=== PATIENT | male | born 1955 | race Caucasian/White ===

== ENCOUNTER 2019-03-05 14:36 | Inpatient (IN) | payer MEDICARE, OTHER ==
[~2019-03-05] VITALS: Ht 170.2 cm; Wt 61.4 kg
[2019-03-05 15:26] LABS: BASOPHILS # (AUTO) 0.1 X10'3 (0-0.2); BASOPHILS % (AUTO) 0.7 % (0-1); EOSINOPHILS # (AUTO) 0.1 X10'3 (0-0.9); HEMATOCRIT 47.8 % (42.0-52.0); HEMOGLOBIN 15.9 g/dl (14.0-17.9); LYMPHOCYTES # (AUTO) 1.1 X10'3 (1.1-4.8); LYMPHOCYTES % (AUTO) 9.5 % (21-51); MEAN CORPUSCULAR HEMOGLOBIN 30.8 PG (27.0-31.0); MEAN CORPUSCULAR HGB CONC 33.2 g/dL (33.0-36.5); MEAN CORPUSCULAR VOLUME 92.7 FL (78-98); MEAN PLATELET VOLUME 8.7 FL (7.4-10.4); MONOCYTES # (AUTO) 0.9 X10'3 (0-0.9); MONOCYTES % (AUTO) 7.9 % (2-12); NEUTROPHILS % (AUTO) 80.9 % (42-75); PLATELET COUNT 222 X10'3 (140-440); RED BLOOD COUNT 5.16 X10'6 (4.70-6.10); RED CELL DISTRIBUTION WIDTH 13.5 % (11.5-14.5); WHITE BLOOD COUNT 11.1 X10'3 (4.5-11.0)
[2019-03-05] MEDS ORDERED: NO HOME MEDS (15:44)
[2019-03-05] MEDS ORDERED: LORazepam 1 MG tablet PO ONE (16:05)
[2019-03-05 16:13] LABS: PARTIAL THROMBOPLASTIN TIME 29 SECONDS (22-32)
[2019-03-05 16:18] LABS: ALANINE AMINOTRANSFERASE 33 U/L (12-78); ALBUMIN 3.6 G/DL (3.4-5.0); ALBUMIN/GLOBULIN RATIO 1.1 (1.1-1.5); ALKALINE PHOSPHATASE 107 IU/L (46-116); ANION GAP 4 (8-16); ASPARTATE AMINO TRANSFERASE 28 U/L (10-37); BILIRUBIN,TOTAL 0.6 MG/DL (0.1-1.0); BLOOD UREA NITROGEN 13 MG/DL (7-18); BUN/CREATININE RATIO 10.6 (5.4-32.0); CHLORIDE 102 MMOL/L (99-107); CREATININE 1.23 MG/DL (0.60-1.10); GLUCOSE 110 MG/DL (70-104); POTASSIUM 4.4 MMOL/L (3.5-5.1); SODIUM 142 MMOL/L (135-145); TOTAL CARBON DIOXIDE 35.7 MMOL/L (24-32); eGFR 59 ML/MIN
[2019-03-05] MEDS ORDERED: ipratropium/albuterol 3ml nebule NEB ONE (16:20)
[2019-03-05] MEDS ORDERED: methylPREDNISolone sod succ 125mg/2ml vial IV ONE (16:35)
[2019-03-05 17:16] LABS: ABG HCO3 30.2 mmol/L (22.0-26.0); ABG OXYGEN SATURATION 97.2 % (95-98); ABG PH (T) 7.391 (7.350-7.450); ABG PO2 (T) 88.3 mmHg (83-108); FCOHb 0.8 % (0.5-1.5); FLOW 2 L/min; FMetHb 0.2 % (0.3-1.12); FO2Hb 96.2 % (94-100); TOTAL HEMOGLOBIN 16.6 G/dl (14.0-17.9)
[2019-03-05] MEDS ORDERED: furosemide 10 MG/1 ML 10ml inj IV ONE (17:25)
[2019-03-05] MEDS ORDERED: magnesium 4gm in 100ml NS 100 ML IV PRN (17:30)
[2019-03-05] MEDS ORDERED: ondansetron/PF 4mg/2ml inj IV PRN (17:30)
[2019-03-05] MEDS ORDERED: ipratropium/albuterol 3ml nebule NEB PRN (17:30)
[2019-03-05] MEDS ORDERED: mag hydrox/Alum hydrox/simeth 30ml oral suspension PO PRN (17:30)
[2019-03-05] MEDS ORDERED: magnesium 2GM in 50ml NS 50 ML IV PRN (17:30)
[2019-03-05] MEDS ORDERED: HYDROcodone/acetaminophen 5mg/325mg tablet PO PRN (17:30)
[2019-03-05] MEDS ORDERED: magnesium Cl slow-release 64mg tablet PO PRN (17:30)
[2019-03-05] MEDS ORDERED: magnesium hydroxide 30ml (MOM) UD suspension PO PRN (17:30)
[2019-03-05] MEDS ORDERED: metoclopramide 5 mg/ml inj IV PRN (17:30)
[2019-03-05] MEDS ORDERED: diphenhydrAMINE 50 mg/ml inj IV PRN (17:30)
[2019-03-05] MEDS ORDERED: acetaminophen 650mg rectal suppository RC PRN (17:30)
[2019-03-05] MEDS ORDERED: potassium CL 10mEq/100ml bag 100 ML IV PRN ×2 (17:30)
[2019-03-05] MEDS ORDERED: acetaminophen 325mg tablet PO PRN ×2 (17:30)
[2019-03-05] MEDS ORDERED: potassium Cl 20 mEq SR tablet PO PRN ×2 (17:30)
[2019-03-05] MEDS ORDERED: diphenhydrAMINE 25mg capsule PO PRN (17:30)
[2019-03-05] MEDS ORDERED: bisacodyl 10mg suppository rectal RC PRN (17:30)
--- NOTE | 2019-03-05 18:06 | NUR ---
Dr. Sevilla is at the bedside to complete admission orders and assessment. Pt's admission to the hospital is pending.
[2019-03-05] MEDS ORDERED: LORazepam 1 MG tablet PO PRN (18:35)
[2019-03-05] MEDS ORDERED: iohexol 300mg/ml 100ml inj. ONE (18:45)
--- NOTE | 2019-03-05 18:51 | NUR ---
Blood cultures collected. Pt is being transported to CT scan via gurney with the side rails raised. Rocephin IV antibiotic to be started upon return from CT scan.
[2019-03-05 19:10] LABS: PHOSPHORUS 2.5 MG/DL (2.3-4.5)
[2019-03-05] MEDS: CefTRIAXone/D5W-Rocephin 1gm 50 ML IV SCH (19:15)
[2019-03-05] MEDS: lisinopril 10 MG tablet PO SCH (19:19)
[2019-03-05 20:00] VITALS: BP 144/100
[2019-03-05] MEDS: K and/or MAG REPLACEMENT MC SCH (20:00)
--- NOTE | 2019-03-05 20:00 | NUR ---
Patient in room PCU 3025. I have received report from [employer] user [id number] and had the opportunity to ask questions and assume patient care. Patient was shortly on the unit with all belongings at bedside.
[2019-03-05] MEDS: ipratropium/albuterol 3ml nebule NEB SCH ×2 (20:04→23:47)
[2019-03-05] MEDS ORDERED: temazepam 15mg capsule PO PRN (21:00)
[2019-03-05] MEDS: furosemide 40mg/4ml inj IV SCH (21:47)
[2019-03-05] MEDS: methylPREDNISolone sod succ 125mg/2ml vial IV SCH (21:47)
[2019-03-05] MEDS: docusate sod 100mg capsule PO SCH (21:48)
[2019-03-05] MEDS: carVEDilol 3.125mg tablet PO SCH (21:48)
[2019-03-05 22:00] VITALS: BP 116/79
[2019-03-06] MEDS: methylPREDNISolone sod succ 125mg/2ml vial IV SCH ×2 (01:31→09:00)
[2019-03-06 02:00] VITALS: BP 114/78
[2019-03-06 03:27] LABS: LYMPHOCYTES # (AUTO) 0.3 X10'3 (1.1-4.8); MEAN PLATELET VOLUME 8.7 FL (7.4-10.4); MONOCYTES # (AUTO) 0.1 X10'3 (0-0.9); PLATELET COUNT 218 X10'3 (140-440)
[2019-03-06 03:29] LABS: BASOPHILS % (AUTO) 0.1 % (0-1); EOSINOPHILS % (AUTO) 0.1 % (0-6); HEMATOCRIT 49.3 % (42.0-52.0); HEMOGLOBIN 16.8 g/dl (14.0-17.9); LYMPHOCYTES % (AUTO) 6.8 % (21-51); MEAN CORPUSCULAR HEMOGLOBIN 31.1 PG (27.0-31.0); MEAN CORPUSCULAR VOLUME 91.5 FL (78-98); MONOCYTES % (AUTO) 1.9 % (2-12); NEUTROPHILS # (AUTO) 4.5 X10'3 (1.8-7.7); NEUTROPHILS % (AUTO) 91.1 % (42-75); RED BLOOD COUNT 5.39 X10'6 (4.70-6.10); RED CELL DISTRIBUTION WIDTH 13.1 % (11.5-14.5)
[2019-03-06 03:46] LABS: ALANINE AMINOTRANSFERASE 30 U/L (12-78); ALBUMIN 3.5 G/DL (3.4-5.0); ALKALINE PHOSPHATASE 103 IU/L (46-116); ANION GAP 5 (8-16); ASPARTATE AMINO TRANSFERASE 22 U/L (10-37); BILIRUBIN,TOTAL 0.6 MG/DL (0.1-1.0); BLOOD UREA NITROGEN 20 MG/DL (7-18); BUN/CREATININE RATIO 13.5 (5.4-32.0); CHLORIDE 99 MMOL/L (99-107); CREATININE 1.48 MG/DL (0.60-1.10); GLUCOSE 135 MG/DL (70-104); POTASSIUM 3.8 MMOL/L (3.5-5.1); SODIUM 140 MMOL/L (135-145); TOTAL CARBON DIOXIDE 35.7 MMOL/L (24-32); eGFR 48 ML/MIN
[2019-03-06 03:50] LABS: CHOL/HDL RATIO 3.2 (0.00-4.99); CHOLESTEROL 193 MG/DL (0-200); HDL CHOLESTEROL 61 MG/DL (35-60); LDL CHOLESTEROL 123 MG/DL (50-100); MAGNESIUM 1.7 MG/DL (1.5-2.4); PHOSPHORUS 3.4 MG/DL (2.3-4.5); TRIGLYCERIDES 48 MG/DL (20-135)
--- NOTE | 2019-03-06 06:00 | NUR ---
END NOC NOTE Patient slept tonight. On admission patient's blood pressure was high and stated he had "white coat syndrome and haven't been in the hospital in a very long time." Blood pressure did resolve itself. All medications were given. Will continue to monitor.
--- NOTE | 2019-03-06 06:20 | NUR ---
Problems reprioritized. Patient report given, questions answered & plan of care reviewed with DESIREE Stokes.
--- NOTE | 2019-03-06 06:40 | NUR ---
Patient in room PCU 3025. I have received report from DESIREE Stokes and had the opportunity to ask questions and assume patient care. Patient sleeping at this time. No distress noted. Will continue to monitor.
[2019-03-06 07:00] VITALS: BP 130/93
[2019-03-06] MEDS: ipratropium/albuterol 3ml nebule NEB SCH ×5 (07:17→23:44)
[2019-03-06] MEDS: K and/or MAG REPLACEMENT MC SCH ×2 (08:00→20:00)
--- NOTE | 2019-03-06 08:20 | NUR ---
Problems reprioritized. Patient report given, questions answered & plan of care reviewed with Natalee RAMÍREZ.
[2019-03-06] MEDS: furosemide 40mg/4ml inj IV SCH ×2 (09:00→20:08)
[2019-03-06] MEDS: docusate sod 100mg capsule PO SCH ×2 (09:00→20:09)
[2019-03-06] MEDS: lisinopril 10 MG tablet PO SCH (09:00)
[2019-03-06] MEDS: sertraline 50mg tablet PO SCH (09:00)
[2019-03-06] MEDS: enoxaparin 40mg/0.4ml syringe SQ SCH (09:01)
[2019-03-06] MEDS: CefTRIAXone/D5W-Rocephin 1gm 50 ML IV SCH (09:01)
[2019-03-06] MEDS: carVEDilol 3.125mg tablet PO SCH ×2 (09:02→20:08)
[2019-03-06] MEDS ORDERED: pneumococcal 23-VAL P-sac vacc 25 mcg/0.5ml vial IMVAC ONE (10:00)
[2019-03-06] MEDS ORDERED: FLU VACC QS2019-20 36MOS UP/PF 60 MCG/0.5 ML SYRINGE IMVAC ONE (10:00)
[2019-03-06 11:00] VITALS: BP 111/79
[2019-03-06 15:00] VITALS: BP 110/77
--- NOTE | 2019-03-06 18:00 | NUR ---
Patient in room PCU 3025. I have received report from Natalee RAMÍREZ and had the opportunity to ask questions and assume patient care.
[2019-03-06 19:00] VITALS: BP 103/64
[2019-03-06 23:00] VITALS: BP 113/71
[2019-03-07 03:00] VITALS: BP 117/75
--- NOTE | 2019-03-07 04:45 | NUR ---
END NOC NOTE Patient slept well tonight. IS and flutter valve is at bedside, needs more teaching. Will continue to monitor.
[2019-03-07 05:05] LABS: BASOPHILS % (AUTO) 0.1 % (0-1); EOSINOPHILS % (AUTO) 0 % (0-6); HEMATOCRIT 48.1 % (42.0-52.0); HEMOGLOBIN 16.3 g/dl (14.0-17.9); LYMPHOCYTES # (AUTO) 1.1 X10'3 (1.1-4.8); LYMPHOCYTES % (AUTO) 5.2 % (21-51); MEAN CORPUSCULAR HEMOGLOBIN 30.8 PG (27.0-31.0); MEAN CORPUSCULAR HGB CONC 33.8 g/dL (33.0-36.5); MEAN CORPUSCULAR VOLUME 91.1 FL (78-98); MEAN PLATELET VOLUME 9.1 FL (7.4-10.4); MONOCYTES # (AUTO) 1.8 X10'3 (0-0.9); MONOCYTES % (AUTO) 8.2 % (2-12); NEUTROPHILS # (AUTO) 18.8 X10'3 (1.8-7.7); NEUTROPHILS % (AUTO) 86.5 % (42-75); PLATELET COUNT 248 X10'3 (140-440); RED BLOOD COUNT 5.28 X10'6 (4.70-6.10); RED CELL DISTRIBUTION WIDTH 13.5 % (11.5-14.5); WHITE BLOOD COUNT 21.7 X10'3 (4.5-11.0)
[2019-03-07 05:17] LABS: ALANINE AMINOTRANSFERASE 30 U/L (12-78); ALBUMIN 3.3 G/DL (3.4-5.0); ALKALINE PHOSPHATASE 95 IU/L (46-116); ANION GAP 2 (8-16); ASPARTATE AMINO TRANSFERASE 18 U/L (10-37); BILIRUBIN,TOTAL 0.4 MG/DL (0.1-1.0); BLOOD UREA NITROGEN 40 MG/DL (7-18); BUN/CREATININE RATIO 19.2 (5.4-32.0); CALCIUM 9.1 MG/DL (8.5-10.1); CHLORIDE 99 MMOL/L (99-107); CREATININE 2.08 MG/DL (0.60-1.10); GLUCOSE 120 MG/DL (70-104); MAGNESIUM 1.9 MG/DL (1.5-2.4); PHOSPHORUS 4.8 MG/DL (2.3-4.5); POTASSIUM 3.7 MMOL/L (3.5-5.1); SODIUM 140 MMOL/L (135-145); TOTAL CARBON DIOXIDE 39.1 MMOL/L (24-32); TOTAL PROTEIN 6.5 G/DL (6.4-8.2); eGFR 32 ML/MIN
--- NOTE | 2019-03-07 06:46 | NUR ---
Problems reprioritized. Patient report given, questions answered & plan of care reviewed with Natalee coto.
[2019-03-07 07:00] VITALS: BP 104/77
[2019-03-07] MEDS: ipratropium/albuterol 3ml nebule NEB SCH ×5 (07:00→23:00)
[2019-03-07] MEDS: K and/or MAG REPLACEMENT MC SCH ×2 (08:00→20:00)
[2019-03-07] MEDS: carVEDilol 3.125mg tablet PO SCH ×2 (08:40→20:33)
[2019-03-07] MEDS: aspirin 81mg tablet.DR PO SCH (08:40)
[2019-03-07] MEDS: atorvastatin 20mg tablet PO SCH (08:40)
[2019-03-07] MEDS: furosemide 40mg/4ml inj IV SCH (08:40)
[2019-03-07] MEDS: sertraline 50mg tablet PO SCH (08:41)
[2019-03-07] MEDS: docusate sod 100mg capsule PO SCH ×2 (08:41→20:33)
[2019-03-07] MEDS: lisinopril 10 MG tablet PO SCH (08:41)
[2019-03-07] MEDS: CefTRIAXone/D5W-Rocephin 1gm 50 ML IV SCH (08:42)
[2019-03-07] MEDS: enoxaparin 40mg/0.4ml syringe SQ SCH (08:42)
[2019-03-07 11:00] VITALS: BP 112/84
[2019-03-07 15:00] VITALS: BP 127/83
[2019-03-07] MEDS: predniSONE 20 mg tablet PO SCH (17:24)
--- NOTE | 2019-03-07 18:00 | NUR ---
Patient in room PCU 3025. I have received report from Natalee RAMÍREZ and had the opportunity to ask questions and assume patient care.
[2019-03-07 19:00] VITALS: BP 121/81
[2019-03-07] MEDS: lactobacillus rhamnosus 10,000 MMU CELLS/CAPSULE PO SCH (20:33)
[2019-03-07 23:00] VITALS: BP 129/97
[2019-03-08 03:00] VITALS: BP 118/85
[2019-03-08 05:50] LABS: BASOPHILS % (AUTO) 0.1 % (0-1); EOSINOPHILS % (AUTO) 0 % (0-6); HEMATOCRIT 52.3 % (42.0-52.0); HEMOGLOBIN 17.3 g/dl (14.0-17.9); LYMPHOCYTES # (AUTO) 0.5 X10'3 (1.1-4.8); LYMPHOCYTES % (AUTO) 3.4 % (21-51); MEAN CORPUSCULAR HEMOGLOBIN 30.6 PG (27.0-31.0); MEAN CORPUSCULAR VOLUME 92.8 FL (78-98); MEAN PLATELET VOLUME 9.2 FL (7.4-10.4); MONOCYTES # (AUTO) 0.5 X10'3 (0-0.9); MONOCYTES % (AUTO) 3.8 % (2-12); NEUTROPHILS # (AUTO) 13.2 X10'3 (1.8-7.7); NEUTROPHILS % (AUTO) 92.7 % (42-75); PLATELET COUNT 258 X10'3 (140-440); RED BLOOD COUNT 5.64 X10'6 (4.70-6.10); RED CELL DISTRIBUTION WIDTH 13.6 % (11.5-14.5); WHITE BLOOD COUNT 14.3 X10'3 (4.5-11.0)
--- NOTE | 2019-03-08 05:52 | NUR ---
End noc note Patient has flutter and IS at bedside, teaching was done, return demonstrating went well. Slept very well tonight, would like to go home. Will continue to monitor.
[2019-03-08 05:58] LABS: ALANINE AMINOTRANSFERASE 29 U/L (12-78); ALBUMIN 3.3 G/DL (3.4-5.0); ALKALINE PHOSPHATASE 97 IU/L (46-116); ANION GAP 4 (8-16); ASPARTATE AMINO TRANSFERASE 15 U/L (10-37); BILIRUBIN,TOTAL 0.6 MG/DL (0.1-1.0); BLOOD UREA NITROGEN 38 MG/DL (7-18); BUN/CREATININE RATIO 26.4 (5.4-32.0); CALCIUM 8.9 MG/DL (8.5-10.1); CHLORIDE 100 MMOL/L (99-107); CREATININE 1.44 MG/DL (0.60-1.10); GLUCOSE 135 MG/DL (70-104); MAGNESIUM 2.1 MG/DL (1.5-2.4); PHOSPHORUS 4.7 MG/DL (2.3-4.5); POTASSIUM 4.2 MMOL/L (3.5-5.1); SODIUM 140 MMOL/L (135-145); TOTAL CARBON DIOXIDE 36.4 MMOL/L (24-32); TOTAL PROTEIN 6.7 G/DL (6.4-8.2); eGFR 49 ML/MIN
--- NOTE | 2019-03-08 06:19 | NUR ---
Problems reprioritized. Patient report given, questions answered & plan of care reviewed with Natalee RAMÍREZ.
[2019-03-08 07:00] VITALS: BP 137/97
[2019-03-08] MEDS: K and/or MAG REPLACEMENT MC SCH (08:00)
[2019-03-08] MEDS: ipratropium/albuterol 3ml nebule NEB SCH ×2 (08:12→11:12)
[2019-03-08] MEDS: atorvastatin 20mg tablet PO SCH (08:52)
[2019-03-08] MEDS: lactobacillus rhamnosus 10,000 MMU CELLS/CAPSULE PO SCH (08:52)
[2019-03-08] MEDS: CefTRIAXone/D5W-Rocephin 1gm 50 ML IV SCH (08:52)
[2019-03-08] MEDS: docusate sod 100mg capsule PO SCH (08:52)
[2019-03-08] MEDS: carVEDilol 3.125mg tablet PO SCH (08:52)
[2019-03-08] MEDS: predniSONE 20 mg tablet PO SCH (08:52)
[2019-03-08] MEDS: sertraline 50mg tablet PO SCH (08:52)
[2019-03-08] MEDS: aspirin 81mg tablet.DR PO SCH (08:52)
[2019-03-08] MEDS: enoxaparin 40mg/0.4ml syringe SQ SCH (08:53)
[2019-03-08] MEDS ORDERED: CEFU500T66 PO (11:52)
[2019-03-08] MEDS ORDERED: ASPI-1071 PO (11:52)
[2019-03-08] MEDS ORDERED: SERT50TA10 PO (11:52)
[2019-03-08] MEDS ORDERED: IPRA3AMP9 NEB (11:52)
[2019-03-08] MEDS ORDERED: COR3.125T PO (11:52)
[2019-03-08] MEDS ORDERED: PRED20TA PO (11:52)
[2019-03-08] MEDS ORDERED: ATOR20TA66 PO (11:52)
--- NOTE | 2019-03-08 12:12 | NUR ---
Patient stable for discharge per MD. Educations materials provided to patient and patients mother. Discharge instructions given to patient. All new medications sent to [facility]. PIV d/c'd, catheter intact. Tele monitor removed and returned to telecom manager. Patient transported off unit via wheel chair accompanied by staff.
== END 2019-03-08 12:38 | disposition home or self-care (01) | DRG 291 ==
LOC: ER 14:38 → ED HOLD 17:45 → PCU 3S 19:59
PROVIDERS: ADMIT Family Medicine; ATTEND Family Medicine
PROC: BW241ZZ Computerized Tomography (CT Scan) of Chest and Abdomen using Low Osmolar Contrast (ICD-10-PCS; 2019-03-05)
PROC: 3E0234Z Introduction of Serum, Toxoid and Vaccine into Muscle, Percutaneous Approach (ICD-10-PCS; principal; 2019-03-06)
PROC: 3E02340 Introduction of Influenza Vaccine into Muscle, Percutaneous Approach (ICD-10-PCS; 2019-03-06)
DX: I11.0 Hypertensive heart disease with heart failure (principal); J96.21 Acute and chronic respiratory failure with hypoxia; N17.0 Acute kidney failure with tubular necrosis; I50.33 Acute on chronic diastolic (congestive) heart failure; F32.9 Major depressive disorder, single episode, unspecified; F41.1 Generalized anxiety disorder; R00.0 Tachycardia, unspecified; E86.0 Dehydration; D72.823 Leukemoid reaction; J43.9 Emphysema, unspecified; Z77.098 Contact with and (suspected) exposure to other hazardous, chiefly nonmedicinal, chemicals; Z79.82 Long term (current) use of aspirin; Z23 Encounter for immunization; Z79.899 Other long term (current) drug therapy; Z87.891 Personal history of nicotine dependence; Z99.81 Dependence on supplemental oxygen; T38.0X5A Adverse effect of glucocorticoids and synthetic analogues, initial encounter; Y92.238 Other place in hospital as the place of occurrence of the external cause
CPT/HCPCS: 36415; 36600; 71045; 71260; 80053; 80061; 82803; 83605; 83735; 83880; 84100; 84145; 84484; 85018; 85025; 85379; 85610; 85730; 87040; 87081; 93005; 93308; 94640; 94667; 94668; 94760; 96374; 97116; 97161; 97530; 99285; G0378; J0696; J1650; J1940; J2930; J7512; Q2037; Q9967

== ENCOUNTER 2019-05-31 05:34 | Emergency (ER) | payer MEDICARE, OTHER ==
[~2019-05-31] VITALS: Ht 170.2 cm; Wt 59.1 kg
[~2019-05-31 05:34] MED LIST: ALBU8.5H8 INH; ATOR40TA72 PO; BUDE10.22 INH; CARV-49 PO; IPRA3AMP9 NEB; PANT40TA4 PO
[2019-05-31] MEDS ORDERED: methylPREDNISolone sod succ 125mg/2ml vial IV ONE (06:05)
[2019-05-31] MEDS ORDERED: ipratropium/albuterol 3ml nebule NEB ONE (06:05)
[2019-05-31 06:11] LABS: BASOPHILS # (AUTO) 0.1 X10'3 (0-0.2); BASOPHILS % (AUTO) 1.3 % (0-1); EOSINOPHILS # (AUTO) 0.5 X10'3 (0-0.9); EOSINOPHILS % (AUTO) 4.8 % (0-6); HEMATOCRIT 49.8 % (42.0-52.0); HEMOGLOBIN 16.4 g/dl (14.0-17.9); LYMPHOCYTES # (AUTO) 2.7 X10'3 (1.1-4.8); LYMPHOCYTES % (AUTO) 24.6 % (21-51); MEAN CORPUSCULAR HEMOGLOBIN 30.4 PG (27.0-31.0); MEAN CORPUSCULAR HGB CONC 32.9 g/dL (33.0-36.5); MEAN CORPUSCULAR VOLUME 92.3 FL (78-98); MEAN PLATELET VOLUME 8.9 FL (7.4-10.4); MONOCYTES # (AUTO) 1.1 X10'3 (0-0.9); NEUTROPHILS # (AUTO) 6.4 X10'3 (1.8-7.7); NEUTROPHILS % (AUTO) 59.3 % (42-75); PLATELET COUNT 201 X10'3 (140-440); RED BLOOD COUNT 5.39 X10'6 (4.70-6.10); RED CELL DISTRIBUTION WIDTH 14.9 % (11.5-14.5); WHITE BLOOD COUNT 10.9 X10'3 (4.5-11.0)
[2019-05-31 06:24] LABS: ALANINE AMINOTRANSFERASE 33 U/L (12-78); ALBUMIN 3.7 G/DL (3.4-5.0); ALBUMIN/GLOBULIN RATIO 0.9 (1.1-1.5); ALKALINE PHOSPHATASE 125 IU/L (46-116); ANION GAP 2 (8-16); ASPARTATE AMINO TRANSFERASE 37 U/L (10-37); BILIRUBIN,TOTAL 0.5 MG/DL (0.1-1.0); BLOOD UREA NITROGEN 13 MG/DL (7-18); BUN/CREATININE RATIO 9.4 (5.4-32.0); CALCIUM 9.2 MG/DL (8.5-10.1); CHLORIDE 104 MMOL/L (99-107); CREATININE 1.38 MG/DL (0.60-1.10); GLUCOSE 167 MG/DL (70-104); SODIUM 140 MMOL/L (135-145); TOTAL PROTEIN 7.6 G/DL (6.4-8.2); eGFR 52 ML/MIN
--- NOTE | 2019-05-31 06:32 | NUR ---
RT at bedside
[2019-05-31] MEDS ORDERED: LORazepam 2 mg/ml vial IV ONE (06:45)
[2019-05-31] MEDS ORDERED: albuterol 2.5 MG/3 ML nebule CONTNEB PRN (06:45)
[2019-05-31] MEDS ORDERED: albuterol 2.5 MG/3 ML nebule ONE (06:49)
[2019-05-31] MEDS ORDERED: furosemide 10 MG/1 ML 10ml inj IV ONE (07:45)
[2019-05-31] MEDS ORDERED: furosemide 40mg/4ml inj IV ONE (07:45)
[2019-05-31 09:20] VITALS: BP 133/87
[2019-05-31] MEDS ORDERED: PRED20TA PO (09:49)
== END 2019-05-31 11:06 | disposition home or self-care (01) ==
LOC: ER 05:35
DX: J44.1 Chronic obstructive pulmonary disease with (acute) exacerbation (principal); R06.02 Shortness of breath; R05 Cough; Z95.1 Presence of aortocoronary bypass graft; Z87.891 Personal history of nicotine dependence; Z79.899 Other long term (current) drug therapy
CPT/HCPCS: 36415; 71045; 80053; 83880; 84484; 85025; 93005; 94640; 96374; 96375; 99285; J1940; J2060; J2930; 94760

== ENCOUNTER 2019-08-16 07:56 | Emergency (ER) | payer MEDICARE, OTHER ==
[~2019-08-16] VITALS: Ht 170.2 cm; Wt 61.4 kg
[2019-08-16 08:27] LABS: BASOPHILS # (AUTO) 0.1 X10'3 (0-0.2); EOSINOPHILS # (AUTO) 0.3 X10'3 (0-0.9); EOSINOPHILS % (AUTO) 3.4 % (0-6); HEMATOCRIT 47.6 % (42.0-52.0); HEMOGLOBIN 15.5 g/dl (14.0-17.9); LYMPHOCYTES # (AUTO) 1.4 X10'3 (1.1-4.8); LYMPHOCYTES % (AUTO) 13.1 % (21-51); MEAN CORPUSCULAR HEMOGLOBIN 30.1 PG (27.0-31.0); MEAN CORPUSCULAR HGB CONC 32.7 g/dL (33.0-36.5); MEAN CORPUSCULAR VOLUME 92.2 FL (78-98); MEAN PLATELET VOLUME 9.3 FL (7.4-10.4); MONOCYTES # (AUTO) 0.9 X10'3 (0-0.9); MONOCYTES % (AUTO) 8.7 % (2-12); NEUTROPHILS # (AUTO) 7.6 X10'3 (1.8-7.7); NEUTROPHILS % (AUTO) 73.8 % (42-75); PLATELET COUNT 158 X10'3 (140-440); RED BLOOD COUNT 5.16 X10'6 (4.70-6.10); RED CELL DISTRIBUTION WIDTH 13.8 % (11.5-14.5); WHITE BLOOD COUNT 10.3 X10'3 (4.5-11.0)
[2019-08-16] MEDS ORDERED: methylPREDNISolone sod succ 125mg/2ml vial IV ONE (08:40)
[2019-08-16 08:44] LABS: ALANINE AMINOTRANSFERASE 33 U/L (12-78); ALBUMIN 3.2 G/DL (3.4-5.0); ALKALINE PHOSPHATASE 114 IU/L (46-116); ANION GAP 2 (8-16); ASPARTATE AMINO TRANSFERASE 34 U/L (10-37); BILIRUBIN,TOTAL 0.5 MG/DL (0.1-1.0); BLOOD UREA NITROGEN 19 MG/DL (7-18); BUN/CREATININE RATIO 13.4 (5.4-32.0); CALCIUM 8.6 MG/DL (8.5-10.1); CHLORIDE 109 MMOL/L (99-107); CREATININE 1.42 MG/DL (0.60-1.10); GLUCOSE 132 MG/DL (70-104); POTASSIUM 4.4 MMOL/L (3.5-5.1); SODIUM 142 MMOL/L (135-145); TOTAL CARBON DIOXIDE 31.4 MMOL/L (24-32); TOTAL PROTEIN 6.4 G/DL (6.4-8.2); eGFR 50 ML/MIN
--- NOTE | 2019-08-16 08:45 | NUR ---
CHRISTINE WOLFF [phone]
[2019-08-16] MEDS ORDERED: AZIT-63 PO (09:18)
[2019-08-16] MEDS ORDERED: PRED20TA PO (09:18)
[2019-08-16 09:44] VITALS: BP 120/92
== END 2019-08-16 09:47 | disposition home or self-care (01) ==
LOC: ER 07:57
DX: J44.1 Chronic obstructive pulmonary disease with (acute) exacerbation (principal); I50.9 Heart failure, unspecified; Z79.2 Long term (current) use of antibiotics; Z79.899 Other long term (current) drug therapy
CPT/HCPCS: 36415; 71045; 80053; 83605; 84484; 85025; 87040; 93005; 96374; 99285; J2930

== ENCOUNTER 2021-05-06 14:53 | Day surgery (SDC) | payer MEDICARE, MEDICAID ==
[2021-05-02 15:15] LABS: BASOPHILS # (AUTO) 0.1 X10'3 (0-0.2); BASOPHILS % (AUTO) 1.4 % (0-1); EOSINOPHILS # (AUTO) 0.3 X10'3 (0-0.9); EOSINOPHILS % (AUTO) 3.7 % (0-6); HEMATOCRIT 47.8 % (42.0-52.0); LYMPHOCYTES # (AUTO) 1.8 X10'3 (1.1-4.8); LYMPHOCYTES % (AUTO) 22.1 % (21-51); MEAN CORPUSCULAR HEMOGLOBIN 30.5 PG (27.0-31.0); MEAN CORPUSCULAR HGB CONC 33.5 g/dL (33.0-36.5); MEAN PLATELET VOLUME 7.7 FL (7.4-10.4); MONOCYTES % (AUTO) 12.6 % (2-12); NEUTROPHILS # (AUTO) 4.8 X10'3 (1.8-7.7); NEUTROPHILS % (AUTO) 60.2 % (42-75); PLATELET COUNT 289 X10'3 (140-440); RED BLOOD COUNT 5.26 X10'6 (4.70-6.10)
[2021-05-02 15:23] LABS: ALBUMIN 3.9 G/DL (3.4-5.0); ANION GAP 4 (8-16); BLOOD UREA NITROGEN 22 MG/DL (7-18); BUN/CREATININE RATIO 16.1 (5.4-32.0); CALCIUM 8.8 MG/DL (8.5-10.1); CHLORIDE 100 MMOL/L (99-107); CREATININE 1.37 MG/DL (0.60-1.10); GLUCOSE 71 MG/DL (70-104); POTASSIUM 5.4 MMOL/L (3.5-5.1); SODIUM 138 MMOL/L (135-145); TOTAL CARBON DIOXIDE 34.5 MMOL/L (24-32); eGFR 52 ML/MIN
[2021-05-02 15:24] LABS: APTT 28 SECONDS (22-32)
[~2021-05-06] VITALS: Ht 167.6 cm; Wt 56.9 kg
[2021-05-06] VITALS (8 sets, daily range): BP systolic 99–115; BP diastolic 66–89
[~2021-05-06 14:53] MED LIST changes: +ALBU8.5H17 INH; -ALBU8.5H8 INH; -PANT40TA4 PO; +PANT40TA54 PO
[2021-05-06] MEDS ORDERED: verapamil 2.5 mg/ml inj IV ONE (15:08)
[2021-05-06] MEDS ORDERED: LIDOcaine 1% (10mg/ml)w/preservative injection 20ml MDV ONE (15:08)
[2021-05-06] MEDS ORDERED: midazolam 1 mg/ML 2ml injection ONE (15:08)
[2021-05-06] MEDS ORDERED: iohexol 350MG/ML 100ml bottle IV ONE (15:08)
[2021-05-06] MEDS ORDERED: nitroGLYCERIN-Tridil 50MG/D5W 250 ML IV ONE (15:08)
[2021-05-06] MEDS ORDERED: heparin 1,000unit/ml 10ml vial 10 ML ONE (15:08)
[2021-05-06] MEDS ORDERED: fentaNYL/PF 50MCG/1 ML 2ML syringe ONE (15:09)
[2021-05-06] MEDS ORDERED: diphenhydrAMINE 25mg capsule PO PRN (15:30)
[2021-05-06] MEDS ORDERED: normal saline 1,000 ML IV SCH (15:30)
[2021-05-06] MEDS ORDERED: LORazepam 0.5 MG tablet PO PRN (15:30)
[2021-05-06] MEDS ORDERED: ASPI-611 PO (15:36)
[2021-05-06] MEDS ORDERED: CARV3.123 PO (15:36)
[2021-05-06] MEDS ORDERED: LISI2.5T14 PO (15:36)
[2021-05-06] MEDS ORDERED: ALPR-623 PO (15:36)
[2021-05-06] MEDS ORDERED: IPRA3AMP9 IH (15:42)
[2021-05-06] MEDS ORDERED: ALBU2.5V13 (15:42)
[2021-05-06] MEDS ORDERED: proCHLORperazine 10 MG/2 ml inj IV PRN (18:35)
[2021-05-06] MEDS ORDERED: ondansetron/PF 4mg/2ml inj IV PRN (18:35)
[2021-05-06] MEDS ORDERED: HYDROcodone/acetaminophen 10/325mg tab PO PRN (18:35)
[2021-05-06] MEDS ORDERED: HYDROcodone/acetaminophen 5mg/325mg tablet PO PRN (18:35)
== END 2021-05-06 20:25 | disposition home or self-care (01) ==
LOC: SSTAY O 14:53
PROVIDERS: ATTEND Internal Medicine Interventional Cardiology
DX: R94.39 Abnormal result of other cardiovascular function study (principal); I25.10 Atherosclerotic heart disease of native coronary artery without angina pectoris; I11.0 Hypertensive heart disease with heart failure; I50.42 Chronic combined systolic (congestive) and diastolic (congestive) heart failure; J44.9 Chronic obstructive pulmonary disease, unspecified; E78.5 Hyperlipidemia, unspecified; I42.9 Cardiomyopathy, unspecified; F12.90 Cannabis use, unspecified, uncomplicated; Z79.899 Other long term (current) drug therapy; Z79.82 Long term (current) use of aspirin; Z87.891 Personal history of nicotine dependence
CPT/HCPCS: 36415; 80048; 85025; 85610; 85730; 93005; 93458; 99152; 99153; C1769; C1894; J1644; J2250; J3010; J3490; J7030; Q0163; Q9967; A4620; A5120